=== PATIENT | male | born 1955 | race Caucasian/White ===

== ENCOUNTER 2023-01-22 11:22 | Day surgery (SDC) | payer MEDICARE, OTHER ==
[2023-01-22] MEDS ORDERED: LACTATED RINGERS 1,000 ML IV ONE ×2 (11:54→14:27)
[2023-01-22] MEDS ORDERED: PROPOFOL 500 MG/50 ML 500 MG/50 ML VIAL ONE (13:45)
[2023-01-22] MEDS ORDERED: SIMETHICONE 40 MG/0.6 ML 15 ML BOTTLE PO ONE (14:11)
--- NOTE | 2023-01-22 14:20 | ANESTHESIA ---
Pre-Anesthesia VS, & Labs - Diagnosis screening - Procedure colonoscopy Vital Signs: Temp Pulse Resp BP Pulse Ox O2 Flow Rate 36.2 C L 80 12 130/84 H 96 01/22/23 11:46 01/22/23 11:46 01/22/23 11:46 01/22/23 11:46 01/22/23 11:46 Height: 6 ft 2 in Weight (kg): 125.2 kg Body Mass Index: 35.4 BMI Classification: Obese - NPO >8 hours Home Medications and Allergies Home Medications: Ambulatory Orders No Known Home Medications 01/21/23 No Known Home Medications 01/21/23 Allergies/Adverse Reactions: Allergies Allergy/AdvReac Type Severity Reaction Status Date / Time No Known Drug Allergies Allergy Verified 01/21/23 11:49 Anes History & Medical History - Anesthetic History Anesthesia Complications: reports: No previous complications Family history of Anesthesia Complications: Denies Family history of Malignant Hyperthermia: Denies - Medical History Cardiovascular: reports: None Pulmonary: reports: None Gastrointestinal: reports: None Urinary: reports: None Musculoskeletal: reports: None Endocrine/Autoimmune: reports: None Skin: reports: None Psychosocial: reports: No issues indicated, Other Exam General: Alert, Oriented x3, Cooperative Dental: WNL Mouth Openin Fingerbreadth Neck Mobility: Normal Mallampati classification: II Thyromental Distance: less than 4 cm Respiratory: Lungs clear Cardiovascular: Regular rate Plan Anesthesia Type: General, Total IV Consent for Procedure(s) Verified and Reviewed: Yes Code Status: Attempt Resuscitation ASA classification: 2-Mild systemic disease Is this case an emergency?: No
[2023-01-22 14:43] VITALS: BP 107/77; O2SAT 97
--- NOTE | 2023-01-22 16:27 | ANESTHESIA POST OP EVALUATION ---
Anesthesia Post Eval - Post Anesthesia Eval Vitals: Last Vital Signs Temp 36.2 C L 01/22/23 11:46 Pulse 81 01/22/23 14:38 Resp 11 L 01/22/23 14:38 BP 107/77 01/22/23 14:38 Pulse Ox 97 01/22/23 14:38 O2 Flow Rate CV Function Including HR & BP: Stable Pain Control: Satisfactory Nausea & Vomiting: Negative Mental Status: Baseline Respiratory Status: Airway Patent Hydration Status: Satisfactory Anesthesia Complications: None
== END 2023-01-22 11:23 | disposition home or self-care (01) ==
LOC: SDS 11:22
PROVIDERS: ATTEND Surgery
DX: Z12.11 Encounter for screening for malignant neoplasm of colon (principal); E66.9 Obesity, unspecified; Z68.35 Body mass index [BMI] 35.0-35.9, adult
CPT/HCPCS: A9270; G0121; J7120

== ENCOUNTER 2023-02-22 15:34 | Outpatient (CLI) | payer MEDICARE, OTHER ==
[2023-02-22 16:16] LABS: CALCIUM 9.8 mg/dL (8.5-10.3); POTASSIUM 3.6 mmol/L (3.5-4.5)
== END 2023-02-22 15:35 | disposition home or self-care (01) ==
LOC: LAB 15:34
PROVIDERS: ATTEND Urology
DX: Z00.00 Encounter for general adult medical examination without abnormal findings (principal); R97.20 Elevated prostate specific antigen [PSA]; R35.1 Nocturia; R39.15 Urgency of urination
CPT/HCPCS: 36415; 80048; 84153

== ENCOUNTER 2023-03-09 12:32 | Outpatient (CLI) | payer MEDICARE, OTHER ==
[2023-03-09] MEDS ORDERED: GADOTERATE MEGLUMINE 5 MMOL/10 ML VIAL ONE (12:41)
[2023-03-09] MEDS ORDERED: GADOTERATE MEGLUMINE 10 MMOL/20 ML VIAL ONE (12:42)
[2023-03-09] MEDS ORDERED: GADOTERATE MEGLUMINE 10 MMOL/20 ML VIAL IVP ONE (14:22)
--- NOTE | 2023-03-11 09:45 | MRI Report ---
PROCEDURE: PELVIS W/WO INDICATIONS: ELEVATED PSA CONTRAST: CLARISCAN 25.4 ML TECHNIQUE: Coronal ultra fast SE, axial T1 FSE with fat saturation, 3-plane nonbreath-hold T2 FSE. After the ad ministration of contrast, dynamic axial, delayed axial and coronal ultra fast GE or 2-D spoiled GE wi th fat saturation through the pelvis. Optional diffusion weighted imaging and ADC may be performed. COMPARISON: None. FINDINGS: Image quality: Diffusion weighted and dynamic contrast enhanced images are diagnostic. Prostate: Gland size is 5.4 x 4.9 x 6.2 cm cm; ellipsoid gland volume is 85 mL. Prostate adenocarcinoma suspected infiltrating almost the entire gland, extending from the apex of th e transitional zone and peripheral zone, throughout the mid gland, into the base, also involving the left seminal vesicle. There is extra capsular extension measuring about 1.9 cm in thickness, in close proximity to the left obturator internus. The extra capsular extension also extends to the expected location of the neurovascular bundle, particularly on the left. DWI score 5. T2 score 5. DCE+. PI-RADS 5. Genitourinary system: Prostate adenocarcinoma likely involves the bladder outlet. No hydronephrosis. Bowel and peritoneum: No pathologic ascites or bowel obstruction Nodes and vessels: Metastatic lymph nodes, for example the right common iliac measuring 3.3 cm. No a neurysmal vessel identified. Soft tissues: Unremarkable Bones: Within the field of view, no suspicious osseous lesions. 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 No metastases are seen at least to the level of the common iliac stations. Consider complete stagin g CT or PSMA PET/CT. Reviewed by: Jared Preciado MD on 03/11/2023 9:43 AM PST Approved by: Jared Preciado MD on 03/11/2023 9:43 AM PST Station ID: [id number]
== END 2023-03-09 12:33 | disposition home or self-care (01) ==
LOC: DI 12:32
PROVIDERS: ATTEND Urology
DX: R97.20 Elevated prostate specific antigen [PSA] (principal); C63.7 Malignant neoplasm of other specified male genital organs
CPT/HCPCS: 72197; A9575